=== PATIENT | female | born 1945 | race Caucasian/White ===

== ENCOUNTER 2019-05-18 09:14 | Day surgery (SDC) | payer MEDICARE, OTHER ==
[~2019-05-18] VITALS: Ht 165.1 cm; Wt 71.7 kg
[~2019-05-18 09:14] MED LIST: ASPIRIN EC81 MG PO; ATENOLOL50 MG PO; CODEINE-GUAIFE120 ML PO; COLACE100 MG PO; DIPHENHYDRAMINE25 MG PO; HYDROCODON-ACE1 EA10 PO; LEVOTHYROXINE100 MCG PO; LISINOPRIL5 MG PO; METFORMIN HCL500 M1 PO; POTASSIUM CHLO20 ME1 PO; RANITIDINE HCL150 MG PO; SIMVASTATIN40 MG PO
--- NOTE | 2019-05-18 10:57 | NUR ---
05/18/19 Jordan7 Sayra Stevens 1048- PT ARRIVES TO PACU AROUSABLE TO NOXIOUS STIMULI INSTANTLY FALLS BACK TO SLEEP. RESP EVEN AND UNLABORED. OXYGEN SAT HIGH 90'S TO 100% ON 4L VIA NC. 1054- OXYGEN TITRATED DOWN TO 2L VIA NC.
--- NOTE | 2019-05-18 11:58 | OR ---
[facility] [address], [place] [address] Signed DATE OF OPERATION: 05/18/2019 SURGEON: Paris Thompson MD PREOPERATIVE DIAGNOSES: 1. Barroso's esophagus (2015). 2. Hiatal hernia. 3. Esophagitis. 4. Duodenal ulcers. POSTOPERATIVE DIAGNOSES: 1. Small hiatal hernia (38-36 cm). 2. Kscj-oa-tqotpgwz gastroduodenitis. 3. No visible evidence of Barroso's esophagus nor esophagitis. PROCEDURE PERFORMED: EGD with CLOtest and biopsies of the pyloric bulb, antrum, GE junction, and distal esophagus. ESTIMATED BLOOD LOSS: None. INDICATIONS: Payal is a 74-year-old lady, who had a colonoscopy back in 2005. In the meantime, she had upper endoscopy in 2014. There was description of a hiatal hernia with esophagitis and probable Barroso's esophagus. She apparently had multiple duodenal ulcers. She had been asked to follow up in 3 years for a repeat upper endoscopy. She also had a colonoscopy and we have been trying to track down those results as well. She is known to have idiopathic pancreatitis as well. She said she is doing fine currently. No upper GI complaints. She does use aspirin 81 mg p.o. daily. She also takes Zantac 150 mg p.o. b.i.d. She said that controls her acid reflux symptoms quite well. In the office, I gave Payal a booklet on upper endoscopy. We looked at that together along with the risks including, but not limited to gas bloating, crampy abdominal pain, bleeding, perforation requiring surgery, and missed diagnosis. We also reviewed the need for IV conscious sedation. She had expressed understanding and wished to proceed. PROCEDURE NOTE: Oleg was taken into our endoscopy suite and placed in the supine semi-recumbent position. The posterior oropharynx was anesthetized with Hurricaine spray. A bite block was utilized for the case. She was given a total of 4 mg of Versed and 100 mcg of Electronically Signed By: PARIS THOMPSON MD 05/18/19 1158 PATIENT NAME: OLEG CLARK OPERATIVE REPORT DATE OF : 43 REPORT #: [id number] PHYSICIAN: PARIS THOMPSON MD PCP: SAMI DONIS MD REPORT IS CONFIDENTIAL AND NOT TO BE RELEASED WITHOUT AUTHORIZATION [facility] [address] [place] [id number] Signed fentanyl to cover the case. The adult gastroscope was introduced and advanced out into the 2nd portion of the duodenum under direct visualization of camera without difficulty. The duodenum proper was unremarkable. However, the pyloric channel did show some mild patchy erythematous changes. Consequently, we took a biopsy out of the pyloric bulb for pathologic review. The stomach also showed mild diffuse punctate erythema consistent with gastroduodenitis. We went ahead and took a biopsy from antrum for CLOtest as well as pathologic review. We saw no ulcerations in the pyloric bulb nor the stomach. Upon retroflexion of scope, she appears to have just a small hiatal hernia. The scope was withdrawn up through the area of GE junction, which was compliant without stricture. There was no gastric or esophageal varices. She has mild disruption to the Z-line. She has no visible Barroso's mucosa. We took several circumferential biopsies around the GE junction. We also did not see any irritation in the distal, middle or upper esophagus. We went ahead and took a biopsy of the distal esophagus for pathologic review. After this, the gas was suctioned out and the gastroscope removed. Her vocal cords and arytenoids were unremarkable. Payal tolerated the procedure quite well. RECOMMENDATIONS: I will see Payal back in my office in 7 to 14 days to review her results. We will also follow up on her previous colonoscopy results from 2014. In the meantime, she will stay on her Zantac. Paris Thompson MD ALB/MODL /[id number] cc: MD Sami Edgar MD Copies: PARIS THOMPSON MD ~ Electronically Signed By: PARIS THOMPSON MD 05/18/19 1158 PATIENT NAME: OLEG CLARK OPERATIVE REPORT DATE OF : 43 REPORT #: [id number] PHYSICIAN: PARIS THOMPSON MD PCP: SAMI DONIS MD REPORT IS CONFIDENTIAL AND NOT TO BE RELEASED WITHOUT AUTHORIZATION
--- NOTE | 2019-05-18 12:57 | NUR ---
1145 AWAKE AND DRESSED STATES SHES READY TO GO HOME. ANNIKA HERE TO TAKE HER HOME.
--- NOTE | 2019-05-18 13:13 | NUR ---
TO PATIENT ROOM, STAFF REPORTED WANTING IV OUT. POSITIONED PATIENT SITTING AT EDGE OF BED. DAUGHTER AT SIDE. PATIENT REPORTS NO N/V, OR DIZZINESS. PATIENT REQUESTED AGAIN TO PLEASE REMOVE IV CATHETER. REMOVED IV CATH, TIP INTACT. PATIENT NOW GETTING DRESSED WITH DAUGHTER ASSISTING. REPORTED TO NINA MURILLO AT [facility]URSES STATION BEFORE LEAVING DEPARTMENT.
--- NOTE | 2019-05-19 15:56 | PATH ---
[facility] [address], [place] [address] Signed SPECIMEN(S): A DUODENUM BULB SPECIMEN(S): B ANTRUM/PYLORUS SPECIMEN(S): C GE JUNCTION SPECIMEN(S): D LOWER ESOPHAGUS SPECIMEN SOURCE: A. DUODENUM BULB B. ANTRUM/PYLORUS C. GE JUNCTION D. LOWER ESOPHAGUS CLINICAL HISTORY: Pre: Barroso's esophagus, duodenitis, esophagitis. Post: Gastroduodenitis, small hiatal hernia. MICROSCOPIC DESCRIPTION: Histologic sections of all submitted blocks are examined by light microscopy. These findings, together with the gross examination, support the pathologic diagnosis. FINAL PATHOLOGIC DIAGNOSIS: A. Duodenum, bulb, biopsy: - Duodenal mucosa with mild increased lamina propria chronic inflammation and mucosal capillary congestion. - Negative for dysplasia or malignancy. B. Stomach, antrum/pylorus, biopsy: - Antral mucosa with reactive gastropathy. - Negative for Helicobacter organisms on HE stain. - Negative for dysplasia or malignancy. C. Gastroesophageal junction, biopsy: - Squamous mucosa with mild chronic inflammation and reactive epithelial changes, consistent with reflux esophagitis. - Cardia-oxyntic type mucosa with chronic, inactive gastritis. - Negative for Helicobacter organisms on HE stain. - Negative for intestinal metaplasia, dysplasia or malignancy. D. Esophagus, lower, biopsy: - Squamous mucosa with changes consistent with mild reflux esophagitis. - Negative for intestinal metaplasia, dysplasia, or malignancy. NAL:cml:C2NR GROSS DESCRIPTION: Four specimens are received in four containers, labeled "MM." PATIENT NAME: OLEG CLARK PATHOLOGY DATE OF : 43 REPORT #: [id number] PHYSICIAN: EJANCARLOS LUNDBERG PCP: KRYSTINA DONIS MD REPORT IS CONFIDENTIAL AND NOT TO BE RELEASED WITHOUT AUTHORIZATION [facility] [address], [place] [address] Signed A. The specimen, labeled "MM, 1" and "duodenum bulb" on the requisition, is received in formalin and consists of a 0.3 cm soft land tissue fragment that is submitted in toto in cassette A1. B. The specimen, labeled "MM, 2" and "antrum/pylorus" on the requisition, is received in formalin and consists of a 0.3 cm soft land tissue fragment that is submitted in toto in cassette B1. C. The specimen, labeled "MM, 3" and "GE junction" on the requisition, is received in formalin and consists of three soft land tissue fragments that vary from 0.2-0.3 cm and are submitted in toto in cassette C1. D. The specimen, labeled "MM, 4" and "lower esophagus" on the requisition, is received in formalin and consists of a 0.4 cm soft land flat tissue fragment that is submitted in toto in cassette D1. SS (under the direct supervision of a pathologist) The Gross Description was prepared using a voice recognition system. The report was reviewed for accuracy; however, sound-alike word errors, addition and/or deletions may occur. If there is any question about this report, please contact Client Services. PERFORMING LABORATORY: The technical component was performed by [facility], [address] [place] [id number] (Despatching And Receiving Clerk: Leanne Browne MD; CLIA# [id number]). [facility], [address] [address] (CLIA# [id number]). Diagnostician: Sravani Cole MD Pathologist Electronically Signed 05/19/2019 Copies: ~ PATIENT NAME: OLEG CLARK PATHOLOGY DATE OF : 43 REPORT #: [id number] PHYSICIAN: JEANCARLOS LUNDBERG PCP: KRYSTINA DONIS MD REPORT IS CONFIDENTIAL AND NOT TO BE RELEASED WITHOUT AUTHORIZATION
== END 2019-05-18 12:45 | disposition home or self-care (01) ==
LOC: OPS 09:14 → DS 10:30 → OPS 12:45
PROVIDERS: Colon & Rectal Surgery
PROC: 0DB78ZX Excision of Stomach, Pylorus, Via Natural or Artificial Opening Endoscopic, Diagnostic (ICD-10-PCS; 2019-05-18)
PROC: 0DB48ZX Excision of Esophagogastric Junction, Via Natural or Artificial Opening Endoscopic, Diagnostic (ICD-10-PCS; 2019-05-18)
PROC: 0DB38ZX Excision of Lower Esophagus, Via Natural or Artificial Opening Endoscopic, Diagnostic (ICD-10-PCS; 2019-05-18)
PROC: 0DB98ZX Excision of Duodenum, Via Natural or Artificial Opening Endoscopic, Diagnostic (ICD-10-PCS; principal; 2019-05-18 10:30)
DX: K21.0 Gastro-esophageal reflux disease with esophagitis (principal); K29.50 Unspecified chronic gastritis without bleeding; K29.80 Duodenitis without bleeding; K44.9 Diaphragmatic hernia without obstruction or gangrene; K31.89 Other diseases of stomach and duodenum; Z79.82 Long term (current) use of aspirin; Z79.899 Other long term (current) drug therapy
CPT/HCPCS: 86677; 99153; G0500; J2250; J3010; J7121